=== PATIENT | female | born 1980 | race Caucasian/White ===

== ENCOUNTER 2024-09-14 12:42 | Outpatient (RCR) | payer OTHER, SELFPAY ==
--- NOTE | 2024-09-19 08:46 | HP.OTFCE_ITS ---
Task Lift Floor PDL: No Ability Knee PDL: No Ability Waist (Occasional 1-33% of Day): 4# Waist (Frequent 34-66% of Day): NA Waist (Constant 67-100% of Day): NA Waist PDL: Sedentary Shoulder (Occasional 1-33% of Day): 4# Shoulder (Frequent 34-66% of Day): NA Shoulder (Constant 67-100% of Day): NA Shoulder PDL: Sedentary Overhead PDL: No Ability Work Activity/Posture Bending: Occasional Ability (1-33% of day) Comments: with external support Squatting: Occasional Ability (1-33% of day) Comments: with external support Kneeling: No Ablility (0% of day) Reaching out: Occasional Ability (1-33% of day) Comments: while sitting Reaching up: Occasional Ability (1-33% of day) Comments: while sitting Sitting: No Ablility (0% of day) Walking: Occasional Ability (1-33% of day) Comments: with ad. device Standing: Occasional Ability (1-33% of day) Comments: with external support Reference Reference: Duration Sedentary Sedentary Light Light Light Medium Medium Medium Heavy Very Heavy Heavy Occasional (0-33% of day) Frequent (34-66% of day) Constant (67-100% of day) 10 # Negligible Negligible 15 # 8 # Negligible 20 # 10# Negli. 35 # 18 # 7 # 50 # 25 # 10 # 75 # 100 # >100 # 38 # 50 # >50 # 15 # 20 # >20 # Patient Information Height: 1.59 m Weight:: 93.894 kg Hand Dominance: right Medical History Medical History Including Restrictions: Pt states she had been on disability in March 2024 with [employer] Pt states she has been on halfway disability since 2020 when she went off work- Pt went from short term to halfway March- 2020. Pt states she was disabled for 2 years. pt states she has been through FCE's before. pt states her status of function has also declined in last year- pt states she will have shunt placed 2024 to assist in decrease in pain. Pt states her pain mt. doctor Dr. Carter was filling out her disability paperwork. Pt states she was just at pain mtg. in 2023. 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 pt states she went to her family to have paperwork done for her disability on Aug.01. pt states she went to her Pain mtg 2023 and they could not help her at this time. pt states Family was the one who ordered the FCE so she can continue with her Senior [employer] disability with [employer]. Clarissa is Dr. Buchanan and she will see him in end of Sep. Pt states Clarissa lama told her not to lift more than 30. 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 pt states she also uses medical marijana. Work History Work History: Pt states she was last employed at [employer] until 2020. pt states she worked for 11 years at this facility. Due to pain and dx with syrinx ( G95.0) Behavioral Behavioral: pt cooperative throughout assessment. ADLS ADLS: pt lives with her with her three children ( ages 24-16) and her son -in-law and grandson (4 year old ) pt lives in at ranch home with laundry is in basement. Pt states she has two entry steps without rail (but states she furniture walks) pt has tub shower combination with one rail. use of shower chair - use of long handle shower head. pt states her dtr or does assist with her bathing and dressing. pt does use electric needle specialist- straight care- has rollator. pt states she is unable to cook but she will do some light meal prep while sitting at table. t states her does work outside the home.( [employer] for last 2 years) pt states she does not drive- pt states her family does all the cleaning and grocery shopping. Physical Examination Physical Examination: pt demo with ataxic movement with ROM: pt demo full functional ROM. pt demo with noted ataxic movement Strength: Fet 2 peak force: shoulder flexion right 8# left 11# shoulder extension right 9.8# left 12# biceps right 15# left 13# Triceps right 13# left 13# Hip flexion right 15# left 26# Quadriceps right 15# left 19# Hamstrings right 22# left 20# Right Identification Printing Machine Setter Strength Average: 50.00 Right Identification Printing Machine Setter Strength Percentile: 8% Left Identification Printing Machine Setter Strength Average: 70.00 Left Identification Printing Machine Setter Strength Percentile: 61% Right Lateral Pinch Average: 18.00 Right Lateral Pinch Percentile: >90% Left Lateral Pinch Average: 20.00 Left Lateral Pinch Percentile: >90% Right Tripod Pinch Average: 20.00 Right Tripod Pinch Percentile: >90% Left Tripod Pinch Average: 20.00 Left Tripod Pinch Percentile: >90% Sensation: denies Fine Motor: 9 hole peg test right 14.60 sec. >90% for age left 16.5sec. >90% for age Balance: pt demo with fair balance- pt use of external support due to pain level and safety Non Material Handling Activities Bending: pt demo the ability to bend forward 3/3x with external support: pt holding breath while performing task: pt can bend forward on occasional ability with external support Squatting: pt demo the ability to squat 3x with external support heart rate 98 pt continues to hold her breath during tasks pt can squat on low occasional ability with external support Kneeling: unable Reaching out/up: pt demo the ability to reach out 3/3x, 10/10x and 10/10x rapidly. pt demo the ability to reach up 3/3x, 10/10x anf 4 x rapidly. pt heart rate 94 pain level 8/10 pt can reach up/out on occasional ability Walking: pt ambulates for 300 feet with straight can- pt leans heavy on cane with right UE with slow reciprocal antalgic step pattern. pt did have to stop at 125 feet for 1 min to decrease pain of low back. Standing: pt demo the ability to stand for 6 min with external support and shifting body weight. pt can stand on occasional ability Sitting: pt demo the ability to sit for 45 min shift her body weight. pt reports pain 7/10 grossly throughout pt can sit on frequent ability Climbing Stairs: unable Dynamic Occasional Lifting Capacity Floor Lift: unable Knee Lift: unable Waist Lift: pt demo the ability to lift 4# with right and left UE from this level Shoulder Lift: pt demo the ability to lift from shoulder level 4# with both right and left Overhead Lift: NA Carrying: unable as pt ambulates with straight cane and stops leaning on legs to support self Comments: pt demo with difficulty with static standing balance without support - pt states 6/10 pain at end of session pts max heart rate 101 but would drop to mid 90's quickly.
--- NOTE | 2024-09-19 13:00 | HP.OTFCE.D ---
FCE D/C Summary Discharge text: CARMELASHAYLA Segal CORBY was seen for a one time visit for an FCE on 09/14/24 and is discharged.
== END 2024-09-14 19:00 | disposition home or self-care (01) ==
LOC: OT 12:42
PROVIDERS: Referring Provider Internal Medicine; Visit Provider Internal Medicine
DX: E66.01 Morbid (severe) obesity due to excess calories (principal); R26.81 Unsteadiness on feet; G89.4 Chronic pain syndrome; G95.0 Syringomyelia and syringobulbia
CPT/HCPCS: 97750